=== PATIENT | female | born 1965 | race Caucasian/White ===

== ENCOUNTER 2023-09-18 09:00 | Outpatient (RCR) | payer BC, SELFPAY | END 2023-09-18 23:59 | disposition home or self-care (01) | LOC: RPT 09:00 | PROVIDERS: ATTENDING PHYSICIAN Student in an Organized Health Care Education/Training Program; FAMILY PHYSICIAN Family Medicine | DX: S46.012D Strain of muscle(s) and tendon(s) of the rotator cuff of left shoulder, subsequent encounter (principal); Z73.6 Limitation of activities due to disability | CPT/HCPCS: 97010; 97110; 97112; 97140 ==

== ENCOUNTER → 2023-09-24 18:11 | Outpatient (REF) | payer BC, SELFPAY | LOC: WDC 18:11 | PROVIDERS: ATTENDING PHYSICIAN Obstetrics & Gynecology; FAMILY PHYSICIAN Nurse Practitioner | DX: Z12.31 Encounter for screening mammogram for malignant neoplasm of breast (principal) | CPT/HCPCS: 77063; 77067 ==

== ENCOUNTER 2023-10-16 10:01 | Outpatient (RCR) | payer BC, SELFPAY | END 2023-10-16 23:59 | disposition home or self-care (01) | LOC: RPT 10:01 | PROVIDERS: ATTENDING PHYSICIAN Student in an Organized Health Care Education/Training Program; FAMILY PHYSICIAN Family Medicine | DX: S46.012D Strain of muscle(s) and tendon(s) of the rotator cuff of left shoulder, subsequent encounter (principal); Z73.6 Limitation of activities due to disability | CPT/HCPCS: 97010; 97110; 97112; 97140 ==

== ENCOUNTER 2023-11-13 09:59 | Outpatient (RCR) | payer BC, SELFPAY | END 2023-11-13 23:59 | disposition home or self-care (01) | LOC: RPT 09:59 | PROVIDERS: ATTENDING PHYSICIAN Student in an Organized Health Care Education/Training Program; FAMILY PHYSICIAN Family Medicine | DX: Z47.89 Encounter for other orthopedic aftercare (principal); S46.012D Strain of muscle(s) and tendon(s) of the rotator cuff of left shoulder, subsequent encounter; Z73.6 Limitation of activities due to disability; X58.XXXD Exposure to other specified factors, subsequent encounter | CPT/HCPCS: 97010; 97110; 97112; 97140 ==

== ENCOUNTER 2023-12-11 07:03 | Outpatient (RCR) | payer BC, SELFPAY | END 2023-12-11 23:59 | disposition home or self-care (01) | LOC: RPT 07:03 | PROVIDERS: ATTENDING PHYSICIAN Student in an Organized Health Care Education/Training Program; FAMILY PHYSICIAN Family Medicine | DX: S46.012D Strain of muscle(s) and tendon(s) of the rotator cuff of left shoulder, subsequent encounter (principal); Z73.6 Limitation of activities due to disability | CPT/HCPCS: 97010; 97110; 97112; 97140 ==

== ENCOUNTER 2023-12-18 08:40 | Outpatient (RCR) | payer BC, SELFPAY | END 2023-12-18 10:00 | disposition home or self-care (01) | LOC: RPT 08:40 | PROVIDERS: ATTENDING PHYSICIAN Student in an Organized Health Care Education/Training Program; FAMILY PHYSICIAN Family Medicine | DX: S46.012D Strain of muscle(s) and tendon(s) of the rotator cuff of left shoulder, subsequent encounter (principal); Z73.6 Limitation of activities due to disability | CPT/HCPCS: 97110; 97140 ==